=== PATIENT | female | born 1995 | race Caucasian/White ===

== ENCOUNTER 2018-06-07 16:22 | Emergency (ER) | payer OTHER ==
[2018-06-07] MEDS ORDERED: NS 1,000 ML IV ONE (17:19)
[2018-06-07 17:27] LABS: PLATELET COUNT 267 10^3/uL (150-400)
--- NOTE | 2018-06-07 17:38 | EDPHY ---
H & P Stated Complaint: abd pain Time Seen by Provider: 06/07/18 17:12 HPI/ROS: CHIEF COMPLAINT: Left-sided abdominal pain HISTORY OF PRESENT ILLNESS: Patient is a 22-year-old healthy female who comes to the emergency department complaining of 2 days left-sided abdominal pain left upper and lower quadrant. She states that it seems more painful left lower quadrant. No vaginal bleeding or discharge. She denies risk of . She states she has an IUD in place. No urinary symptoms. No back pain. No trauma. No fever. No vomiting. No diarrhea or constipation. No GERD symptoms. Severity: Moderate Modifying factors: None REVIEW OF SYSTEMS: Constitutional: denies: chills, fever, recent illness, recent injury EENTM: denies: blurred vision, double vision, nose congestion Respiratory: denies: cough, shortness of breath Cardiac: denies: chest pain, irregular heart rate, lightheadedness, palpitations Gastrointestinal/Abdominal: denies: abdominal pain, diarrhea, nausea, vomiting, blood streaked stools Genitourinary: denies: dysuria, frequency, hematuria, pain Musculoskeletal: denies: joint pain, muscle pain Skin: denies: lesions, rash, jaundice, bruising Neurological: denies: headache, numbness, paresthesia, tingling, dizziness, weakness Hematologic/Lymphatic: denies: blood clots, easy bleeding, easy bruising Immunologic/allergic: denies: HIV/AIDS, transplant 10 systems reviewed and negative except as noted EXAM: GENERAL: Well-appearing, well-nourished and in no acute distress. HEAD: Atraumatic, normocephalic. EYES: Pupils equal round and reactive to light, extraocular movements intact, sclera anicteric, conjunctiva are normal. ENT: TMs normal, nares patent, oropharynx clear without exudates. Moist mucous membranes. NECK: Normal range of motion, supple without lymphadenopathy or JVD. LUNGS: Breath sounds clear to auscultation bilaterally and equal. No wheezes rales or rhonchi. HEART: Regular rate and rhythm without murmurs, rubs or gallops. ABDOMEN: Soft, nontender, normoactive bowel sounds. No guarding, no rebound. No masses appreciated. : No cervical motion tenderness. No unusual discharge. Small string from cervix consistent with IUD. No visible bleeding. No adnexal masses or tenderness. BACK: No CVA tenderness, no spinal tenderness, step-offs or deformities EXTREMITIES: Normal range of motion, no pitting or edema. No clubbing or cyanosis. NEUROLOGICAL: Cranial nerves II through XII grossly intact. Normal speech, normal gait. 5/5 strength, normal movement in all extremities, normal sensation , normal reflexes PSYCH: Normal mood, normal affect. SKIN: Warm, dry, normal turgor, no visible rashes or lesions. Source: Patient Exam Limitations: No limitations - Personal History LMP (Females 10-55): 1-7 Days Ago Current Tetanus/Diphtheria Vaccine: Yes - Medical/Surgical History Hx Asthma: No Hx Chronic Respiratory Disease: No Hx Diabetes: No Hx Cardiac Disease: No Hx Renal Disease: No Hx Cirrhosis: No Hx Alcoholism: No Other PMH: Denies - Family History Significant Family History: No pertinent family hx - Social History Smoking Status: Never smoked Alcohol Use: Sober Constitutional: Initial Vital Signs Temperature (C) 37.0 C 06/07/18 16:37 Heart Rate 92 06/07/18 16:37 Respiratory Rate 18 06/07/18 16:37 O2 Sat (%) 96 06/07/18 16:37 O2 Delivery Mode Room Air Allergies/Adverse Reactions: No Known Allergies Allergy (Unverified 06/07/18 16:43) Home Medications: Medication Instructions Recorded NK [No Known Home Meds] 06/07/18 Medical Decision Making - Diagnostics Imaging Results: Imaging Impressions Pelvic/Renal Ultrasound 06/07/18 17:21 Impression: An IUD is in place and bilateral follicular cysts are noted. Results called and discussed with EV SHAH M.D. on 06/07/2018 at 18:46. Imaging: Discussed imaging studies w/ electrician helper powerhouse Radiologist ED Course/Re-evaluation: 7:10 p.m. We discussed the patient's lab and imaging results. She is reassured. She declines prescription medications. She is eager to go home. Discussed indications for returning. Abdominal exam remains nontender. Differential Diagnosis: Partial list of the Differential diagnosis considered include but were not limited to; ovarian cyst, urinary tract infection, constipation and although unlikely based on the history and physical exam, I also considered ovarian torsion, diverticulitis, appendicitis, ectopic , volvulus. I discussed these differential diagnoses and the plan with the patient as well as the usual and expected course. The patient understands that the diagnosis is provisional and that in medicine we are not always correct and that further workup is often warranted. Usual and customary warnings were given. All of the patient's questions were answered. The patient was instructed to return to the emergency department should the symptoms at all worsen or return, otherwise to followup with the physician as we discussed. - Data Points Laboratory Results: Laboratory Results 06/07/18 17:15 06/07/18 17:15 06/07/18 06/07/18 06/07/18 18:38 18:38 18:11 WBC RBC Hgb Hct MCV MCH MCHC RDW Plt Count MPV Neut % (Auto) Lymph % (Auto) [place] % (Auto) Eos % (Auto) Baso % (Auto) Nucleat RBC Rel Count Absolute Neuts (auto) Absolute Lymphs (auto) Absolute Monos (auto) Absolute Eos (auto) Absolute Basos (auto) Absolute Nucleated RBC Immature Gran % Immature Gran # Sodium Potassium Chloride Carbon Dioxide Anion Gap BUN Creatinine Estimated GFR Glucose Calcium Total Bilirubin Conjugated Bilirubin Unconjugated Bilirubin AST ALT Alkaline Phosphatase Total Protein Albumin Beta HCG, Qual Urine Color YELLOW Urine Appearance CLEAR Urine pH 8.0 H (5.0-7.5) Ur Specific [place] 1.023 (1.002-1.030) Urine Protein NEGATIVE (NEGATIVE) Urine Ketones NEGATIVE (NEGATIVE) Urine Blood NEGATIVE (NEGATIVE) Urine Nitrate NEGATIVE (NEGATIVE) Urine Bilirubin NEGATIVE (NEGATIVE) Urine Urobilinogen NEGATIVE EU EU (0.2-1.0) Ur Leukocyte Esterase NEGATIVE (NEGATIVE) Urine RBC 1-3 /hpf /hpf (0-3) Urine WBC 1-3 /hpf /hpf (0-3) Ur Epithelial Cells TRACE /lpf /lpf (NONE-1+) Urine Glucose NEGATIVE (NEGATIVE) Hazel species DNA Pending C.trachomatis RNA (TMA) Pending Gardnerella DNA Probe Pending N.gonorrhoeae RNA (TMA) Pending Trichomonas DNA Probe Pending 06/07/18 06/07/18 06/07/18 17:15 17:15 17:15 WBC 5.61 10^3/uL 10^3/uL (3.80-9.50) RBC 5.06 10^6/uL 10^6/uL (4.18-5.33) Hgb 14.5 g/dL g/dL (12.6-16.3) Hct 43.9 % % (38.0-47.0) MCV 86.8 fL fL (81.5-99.8) MCH 28.7 pg pg (27.9-34.1) MCHC 33.0 g/dL g/dL (32.4-36.7) RDW 13.1 % % (11.5-15.2) Plt Count 267 10^3/uL 10^3/uL (150-400) MPV 10.1 fL fL (8.7-11.7) Neut % (Auto) 51.9 % % (39.3-74.2) Lymph % (Auto) 32.4 % % (15.0-45.0) [place] % (Auto) 12.1 % % (4.5-13.0) Eos % (Auto) 2.3 % % (0.6-7.6) Baso % (Auto) 1.1 % % (0.3-1.7) Nucleat RBC Rel Count 0.0 % % (0.0-0.2) Absolute Neuts (auto) 2.91 10^3/uL 10^3/uL (1.70-6.50) Absolute Lymphs (auto) 1.82 10^3/uL 10^3/uL (1.00-3.00) Absolute Monos (auto) 0.68 10^3/uL 10^3/uL (0.30-0.80) Absolute Eos (auto) 0.13 10^3/uL 10^3/uL (0.03-0.40) Absolute Basos (auto) 0.06 10^3/uL 10^3/uL (0.02-0.10) Absolute Nucleated RBC 0.00 10^3/uL 10^3/uL (0-0.01) Immature Gran % 0.2 % % (0.0-1.1) Immature Gran # 0.01 10^3/uL 10^3/uL (0.00-0.10) Sodium 139 mEq/L mEq/L (135-145) Potassium 4.6 mEq/L mEq/L (3.5-5.2) Chloride 109 mEq/L mEq/L (97-110) Carbon Dioxide 21 mEq/l L mEq/l (22-31) Anion Gap 9 mEq/L mEq/L (6-14) BUN 14 mg/dL mg/dL (7-23) Creatinine 0.8 mg/dL mg/dL (0.6-1.0) Estimated GFR > 60 Glucose 99 mg/dL mg/dL (70-100) Calcium 8.6 mg/dL mg/dL (8.5-10.4) Total Bilirubin 0.6 mg/dL mg/dL (0.1-1.4) Conjugated Bilirubin 0.4 mg/dL mg/dL (0.0-0.5) Unconjugated Bilirubin 0.2 mg/dL mg/dL (0.0-1.1) AST 26 IU/L IU/L (14-46) ALT 17 IU/L IU/L (9-52) Alkaline Phosphatase 60 IU/L IU/L (38-126) Total Protein 6.9 g/dL g/dL (6.3-8.2) Albumin 3.8 g/dL g/dL (3.5-5.0) Beta HCG, Qual NEGATIVE Urine Color Urine Appearance Urine pH Ur Specific [place] Urine Protein Urine Ketones Urine Blood Urine Nitrate Urine Bilirubin Urine Urobilinogen Ur Leukocyte Esterase Urine RBC Urine WBC Ur Epithelial Cells Urine Glucose Hazel species DNA C.trachomatis RNA (TMA) Gardnerella DNA Probe N.gonorrhoeae RNA (TMA) Trichomonas DNA Probe Medications Given: Discontinued Medications Sodium Chloride (Ns) 1,000 mls @ 0 mls/hr IV EDNOW ONE; Wide Open PRN Reason: Protocol Stop: 06/07/18 17:20 Last Admin: 06/07/18 17:50 Dose: 1,000 mls Departure - Departure Disposition: Home, Routine, Self-Care Clinical Impression: Abdominal pain Qualifiers: Abdominal location: left lower quadrant Qualified Code(s): R10.32 - Left lower quadrant pain Condition: Good Instructions: Abdominal Pain (ED) Referrals: NONE *PRIMARY CARE P,. [Primary Care Provider] - As per Instructions Bree Hager MD [Medical Doctor] - 3-4 days, if not improved
[2018-06-07 19:20] VITALS: BP 124/72
[2018-06-10 11:49] LABS: GC AMPLIFICATION GENPROBE NEGATIVE (NEGATIVE)
== END 2018-06-07 19:00 | disposition home or self-care (01) ==
DX: R10.32 Left lower quadrant pain (principal); E86.9 Volume depletion, unspecified